=== PATIENT | female | born 1985 | race Caucasian/White ===

== ENCOUNTER → 2023-11-01 | Outpatient (CLI) | payer OTHER, SELFPAY ==
--- NOTE | 2023-11-01 16:46 | CT_ITS ---
STUDY: CT FACIAL BONES WITHOUT CONTRAST REASON FOR EXAM: Female, 38 years old. CHRONIC SINUSITIS RADIATION DOSAGE (If Supplied By Facility): CTDIvol = ( 33.06 ) mGy, DLP = ( 821.45 ) mGycm TECHNIQUE: The patient was scanned in a multi detector CT scanner. Sagittal and coronal images were reconstructed. Individualized dose optimization techniques were used for this CT. COMPARISON: None. FINDINGS: Normal soft tissue structures. Normal orbital watkins and orbital contents. Nasal septal deviation towards the right side of the midline with the nasal spur. Normal facial bones. There is no demonstrated fracture. Minimal mucosal thickening along the posterior aspect of the left sphenoid sinus and mucosal thickening of the ethmoid sinuses. CT/Sinus/Facial Bone IMPRESSION: Mucosal thickening of the ethmoid sinuses and of the posterior aspect of the left sphenoid sinus. Nasal septal deviation towards the right side of the midline with a spur Electronically Signed: Prakash Nicholson MD at 14:33 EDT ,
== END | disposition home or self-care (01) ==
PROVIDERS: PCP Family Medicine; Referring Provider Otolaryngology; Visit Provider Otolaryngology
DX: J32.8 Other chronic sinusitis (principal)
CPT/HCPCS: 70486